=== PATIENT | male | born 1960 | race Caucasian/White ===

== ENCOUNTER → 2017-03-29 | Outpatient (CLI) | payer BC, OTHER ==
[~2017-03-29] MED LIST: AZAT50TA PO; BISO1TAB8 PO; CALC-250 PO; ETAN50PE SQ; FISH1CAP15 PO; HYDR-1231 PO; NAPR1TAB21 PO; ONDA-42 SL; OXYC-309 PO
--- NOTE | 2017-03-29 14:40 | Diagnostic Imaging Report ---
PROCEDURE: CT urinary tract, rule out kidney stone. TECHNIQUE: Multiple contiguous axial images were obtained through the abdomen and pelvis without the use of intravenous contrast. INDICATION: Hematuria with previous flank pain. COMPARISON: 12/18/2014. DISCUSSION: 3 mm nonobstructing right renal calculus is stable. Previously demonstrated 4 mm left renal calculus is no longer visualized. No hydronephrosis, renal stone, or mass identified on this noncontrast exam. The ureters are decompressed. Urinary bladder is mostly decompressed though otherwise unremarkable. The lung bases are well-aerated. Normal heart size. No pleural or pericardial fluid. Mild fatty infiltration of the liver is decreased from previous exam. The gallbladder is contracted. The stomach, pancreas, spleen, and adrenal glands are unremarkable. The large and small bowel loops, including the appendix, appear normal. There is no ascites or pathologically enlarged lymph nodes identified. Mild atherosclerotic plaques noted throughout the abdominal aorta. No acute osseous abnormality identified. 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 IMPRESSION: 1. 3 mm nonobstructing right renal calculus. Dictated by: Dictated on workstation # [id number]
== END ==
LOC: RAD 13:43
PROVIDERS: ATTEND Internal Medicine
DX: N20.2 Calculus of kidney with calculus of ureter (principal)
CPT/HCPCS: 74176

== ENCOUNTER → 2019-05-18 | Outpatient (CLI) | payer BC ==
[2019-05-18 16:14] LABS: ABSOLUTE RETIC # 53 10e9/L (24-90); BASOPHILS % (AUTO) 1 % (0-10); EOSINOPHILS # (AUTO) 0.3 10^3/uL (0.0-0.3); EOSINOPHILS % (AUTO) 4 % (0-10); HEMATOCRIT 40 % (40-54); HEMOGLOBIN 13.6 G/DL (13.3-17.7); LYMPHOCYTES # (AUTO) 1.2 X 10^3 (1.0-4.0); LYMPHOCYTES % (AUTO) 19 % (12-44); MEAN CORPUSCULAR HEMOGLOBIN 33 PG (25-34); MEAN CORPUSCULAR HGB CONC 34 G/DL (32-36); MEAN CORPUSCULAR VOLUME 97 FL (80-99); MEAN PLATELET VOLUME 9.9 FL (7.4-10.4); MONOCYTES # (AUTO) 0.7 X 10^3 (0.0-1.0); MONOCYTES % (AUTO) 10 % (0-12); NEUTROPHILS # (AUTO) 4.2 X 10^3 (1.8-7.8); NEUTROPHILS % (AUTO) 66 % (42-75); PLATELET COUNT 134 10^3/uL (130-400); RED CELL DISTRIBUTION WIDTH 12.3 % (10.0-14.5); RETICULOCYTE % 1.27 % (0.50-2.40); WHITE BLOOD COUNT 6.4 10^3/uL (4.3-11.0)
[2019-05-18 17:49] LABS: LYMPHOCYTES % (MANUAL) 17 %; NEUTROPHILS % (MANUAL) 73 %
[2019-05-18 17:50] LABS: BASOPHILS % (MANUAL) 0 %; EOSINOPHILS % (MANUAL) 4 %; MONOCYTES % (MANUAL) 6 %; RBC MORPH NORMAL
== END ==
LOC: LAB 15:42
PROVIDERS: ATTEND Internal Medicine
DX: D61.818 Other pancytopenia (principal)
CPT/HCPCS: 36415; 85007; 85027; 85045

== ENCOUNTER → 2019-05-21 | Outpatient (CLI) | payer BC ==
--- NOTE | 2019-05-21 12:24 | Diagnostic Imaging Report ---
PROCEDURE: US Thyroid. TECHNIQUE: Multiple real-time grayscale images were obtained of the thyroid in various projections. INDICATION: Enlarged right thyroid. FINDINGS: Right lobe of the thyroid measures 4.7 x 2.9 x 3.0 cm and the left lobe measures 4.6 x 1.7 x 1.6 cm. Isthmus is 4 mm in thickness. There is a complex mixed solid and cystic nodule in the right lobe of the thyroid measuring 2.8 x 2.4 x 2.0 cm. There is vascularity along the margins of the nodule as well as within the septae of the nodule. No microcalcifications are seen. The left lobe of thyroid is unremarkable. IMPRESSION: Complex mixed solid and cystic nodule involving the right lobe of the thyroid, indeterminate. Fine-needle aspiration could be performed. Dictated by: Dictated on workstation # [id number]
== END ==
LOC: RAD 10:22
PROVIDERS: ATTEND Internal Medicine
DX: E04.1 Nontoxic single thyroid nodule (principal)
CPT/HCPCS: 76536

== ENCOUNTER → 2020-03-07 | Outpatient (CLI) | payer BC ==
--- NOTE | 2020-03-07 14:26 | Diagnostic Imaging Report ---
INDICATION: Thyroid nodule Thyroid sonography performed in the routine fashion and compared to 05/21/2019. The right thyroid lobe measured 5.4 x 2.6 x 2.8 cm, left thyroid lobe measured 3.9 x 1.4 x 1.5 cm. In the right lobe centrally, there is a mixed echogenic lesion measuring 2.8 x 1.9 x 1.9 cm. This shows irregular solid components in its periphery and fluidlike components centrally. It is not changed in size or appearance compared to the previous study. On the left side, there is a faint ill-defined nodule measuring 3 x 4 mm. IMPRESSION: Complex lesion right thyroid lobe is not changed in size or appearance compared to 05/21/2019. Tiny 3 x 4 mm nodule in the left thyroid lobe is seen which was not appreciated on the prior study. Suggest continued follow-up as clinically warranted. Dictated by: Dictated on workstation # [id number]
== END ==
LOC: RAD 13:30
PROVIDERS: ATTEND Internal Medicine
DX: E04.1 Nontoxic single thyroid nodule (principal); E07.89 Other specified disorders of thyroid
CPT/HCPCS: 76536

== ENCOUNTER → 2020-03-21 | Outpatient (CLI) | payer BC ==
[~2020-03-21] VITALS: Ht 182.9 cm; Wt 90.0 kg
[~2020-03-21] MED LIST changes: +LIDOCAINE 1% INJ 20 ML 20 ML VIAL INJ ONE
--- NOTE | 2020-03-21 12:48 | Diagnostic Imaging Report ---
INDICATION: Thyroid mass. Patient presents for ultrasound-guided fine-needle aspiration and biopsy. Patient was brought to the procedure room placed on table in the supine position. Ultrasound imaging of the right neck was performed to evaluate appropriate entry site. The right neck was then prepped and draped in usual sterile fashion. Small amount of 1% lidocaine were utilized for local anesthesia. A total of 4 passes were made into the mixed solid and cystic mass involving the right lobe of thyroid utilizing 25-gauge needles. Fine needle laceration technique was performed. A single pass was made into the inferior aspect of the complex lesion utilizing a Rotex needle and a Rotex biopsy was performed. Hemostasis was obtained using manual compression. Patient tolerated procedure well and left the department in stable condition. IMPRESSION: Successful ultrasound-guided fine-needle aspiration and Rotex biopsy of complex right lobe thyroid mass. Pathology results are currently pending. Dictated by: Dictated on workstation # [id number]
== END ==
LOC: RAD 11:12
PROVIDERS: ATTEND Internal Medicine
DX: E07.9 Disorder of thyroid, unspecified (principal)

== ENCOUNTER → 2020-03-29 | Day surgery (SDC) | payer BC ==
[2020-03-29] VITALS (7 sets, daily range): BP systolic 114–157; BP diastolic 73–94
[~2020-03-29] VITALS: Ht 182 cm; Wt 90.0 kg
[~2020-03-29] MED LIST changes: +DEXAMETHASONE 10 MG/ML (DECADRON) 1 ML VIAL ONE; +LACTATED RINGERS 1,000 ML IV PRN; -LIDOCAINE 1% INJ 20 ML 20 ML VIAL INJ ONE; +LIDOCAINE PF 2% 5 ML (XYLOCAINE) VIAL ONE; +MIDAZOLAM 2 MG/2 ML (VERSED) VIAL ONE; +ONDANSETRON 4 MG/2 ML (SDV) Z0FRAN IVP PRN; +ONDANSETRON 4 MG/2 ML (SDV) Z0FRAN ONE; +SEVOFLURANE (ULTANE) 15 ML INHAL SOLN ONE; +cefTRIAXone 1,000 MG/SWFI 10 ML IV PUSH IV ONE; +fentaNYL INJECTION 100 MCG/2 ML AMP ONE; +morphine INJ 10 MG/ML 1ML (SYR OR VIAL) IVP ONE; +proPOfol 200 MG/20 ML (DIPRIVAN) VIAL IV ONE
--- NOTE | 2020-03-29 07:09 | Progress Note-Pre Operative ---
Pre-Operative Progress Note H&P Reviewed The H&P was reviewed, patient examined and no changes noted. Date Seen by Provider: Mar 29, 2020 Time Seen by Provider: 07:08 Date H&P Reviewed: Mar 29, 2020 Time H&P Reviewed: 07:08 Pre-Operative Diagnosis: BPH AND ELEVATED PSA RUT RUDD MD Mar 29, 2020 07:09
--- NOTE | 2020-03-29 07:10 | Progress Note-Post Operative ---
Post-Operative Progess Note Surgeon (s)/Antique Clock Repairer (s) Surgeon RUT RUDD MD Antique Clock Repairer: NONE Pre-Operative Diagnosis BPH AND ELEVATED PSA Post-Operative Diagnosis SAME Procedure & Operative Findings Date of Procedure 03/29/20 Procedure Performed/Findings PROSTATE BIOPSIES Anesthesia Type GENERAL Estimated Blood Loss Estimated blood loss (mL): NEGLIGIBLE Specimens/Packing Specimens Removed PROSTATE BIOPSIES 6RT AND 6LF Packing: NONE RUT RUDD MD Mar 29, 2020 07:10
--- NOTE | 2020-03-29 07:12 | Discharge Inst-Urology ---
Discharge Inst-Urology Reconcile Patient Problems Problems Reviewed?: Yes Final Diagnosis BPH AND ELEVATED PSA Patient Instructions/Follow Up Plan/Assessment/Instructions Please make appointment to been seen in office in 2 weeks. Rest for 48 hours Take the Levaquin pill left at home tomorrow morning Increase oral fluids for 48 hours and then as needed. Diet as tolerated. If questions or concerns contact your physician Or seek help at emergency department. RUT RUDD MD Mar 29, 2020 07:12
--- NOTE | 2020-03-29 10:00 | NUR ---
PATIENT CAME BACK FROM PACU WITH A ARELLANO IN PLACE. DR. RUDD SAID TO REMOVE THE CATHETER. ADAN ANN.
--- NOTE | 2020-03-29 10:34 | OPERATIVE REPORT ---
DATE OF SERVICE: 03/29/2020 PREOPERATIVE DIAGNOSIS: BPH with elevated PSA. POSTOPERATIVE DIAGNOSIS: BPH with elevated PSA. OPERATION PERFORMED: Transrectal needle biopsy of the prostate. SURGEON: Guillaume Rudd MD ANESTHESIA: General. COMPLICATIONS: None. DESCRIPTION OF PROCEDURE: Under satisfactory general anesthesia, the patient in lithotomy position, genitalia and perineum were prepped and draped in the usual sterile fashion. I went ahead using the Bard biopsy gun, I obtained 12 biopsies, six from each side, trying to be at different levels and orientation. There was minimal bleeding. The patient tolerated the procedure and anesthesia well and was sent to the recovery room in a stable condition. Job ID: [id number] DocumentID: [id number] Dictated Date: 03/29/2020 09:19:50 Admission Nurse Coordinator Date: 03/29/2020 10:33:37 Dictated By: GUILLAUME RUDD MD
--- NOTE | 2020-03-29 10:36 | Anesthesia-General Post-Op ---
General Patient Condition Mental Status/LOC: Same as Preop Cardiovascular: Satisfactory Nausea/Vomiting: Absent Respiratory: Satisfactory Pain: Controlled Complications: Absent Post Op Complications Complications None Follow Up Care/Instructions Patient Instructions None needed. Anesthesia/Patient Condition Patient Condition Patient is doing well, no complaints, stable vital signs, no apparent adverse anesthesia problems. ITALO LOWE DO Mar 29, 2020 10:36
== END ==
LOC: SDC 06:22
PROVIDERS: ATTEND Urology
DX: N40.0 Benign prostatic hyperplasia without lower urinary tract symptoms (principal); R97.20 Elevated prostate specific antigen [PSA]; I10 Essential (primary) hypertension; E78.5 Hyperlipidemia, unspecified; M06.9 Rheumatoid arthritis, unspecified; Z79.899 Other long term (current) drug therapy; Z11.2 Encounter for screening for other bacterial diseases; Z20.828 Contact with and (suspected) exposure to other viral communicable diseases; Z87.442 Personal history of urinary calculi; Z98.1 Arthrodesis status
CPT/HCPCS: 55700; 87081; U0002; 87635

== ENCOUNTER → 2020-11-25 | Outpatient (CLI) | payer BC ==
[~2020-11-25] MED LIST changes: -DEXAMETHASONE 10 MG/ML (DECADRON) 1 ML VIAL ONE; -LACTATED RINGERS 1,000 ML IV PRN; -LIDOCAINE PF 2% 5 ML (XYLOCAINE) VIAL ONE; -MIDAZOLAM 2 MG/2 ML (VERSED) VIAL ONE; -ONDANSETRON 4 MG/2 ML (SDV) Z0FRAN IVP PRN; -ONDANSETRON 4 MG/2 ML (SDV) Z0FRAN ONE; -SEVOFLURANE (ULTANE) 15 ML INHAL SOLN ONE; -cefTRIAXone 1,000 MG/SWFI 10 ML IV PUSH IV ONE; -fentaNYL INJECTION 100 MCG/2 ML AMP ONE; -morphine INJ 10 MG/ML 1ML (SYR OR VIAL) IVP ONE; -proPOfol 200 MG/20 ML (DIPRIVAN) VIAL IV ONE
--- NOTE | 2020-11-25 12:06 | Diagnostic Imaging Report ---
CLINICAL HISTORY: Right hip pain. No known injury. COMPARISON: None. TECHNIQUE: Single AP view of the pelvis is obtained. FINDINGS: There is no acute fracture or dislocation of the pelvis and bilateral hips. Moderate to severe degenerative changes are seen in the right hip with joint space loss, marginal osteophytes, and subchondral sclerosis. Milder degenerative changes are seen in the left hip. The bilateral SI joints are well aligned. The pubic symphysis is intact. IMPRESSION: 1. Advanced osteoarthritis in the right hip. 2. No acute fracture or dislocation is seen in the pelvis and bilateral hips. Dictated by: Dictated on workstation # [id number]
--- NOTE | 2020-11-25 12:10 | Diagnostic Imaging Report ---
EXAMINATION: Lumbosacral spine 2 or 3 views HISTORY: Right hip pain. No known injury. COMPARISON: 06/20/2011. FINDINGS: There is no acute fracture or dislocation of the lumbar spine. There is grade 1 anterolisthesis of L4 on L5. The vertebral body heights are well maintained. Moderate degenerative changes are present in the lumbar spine, particularly at the L4-L5 level. The included soft tissues are unremarkable. IMPRESSION: 1. No acute fracture or dislocation in the lumbar spine. 2. Grade 1 anterolisthesis of L4 on L5. 3. Moderate degenerative changes in the lumbar spine, greatest at L4-L5. If indicated, consider MRI of the lumbar spine to further characterize. Dictated by: Dictated on workstation # [id number]
== END ==
LOC: RAD 11:26
PROVIDERS: ATTEND Chiropractor
DX: M16.11 Unilateral primary osteoarthritis, right hip (principal); M43.16 Spondylolisthesis, lumbar region; M47.816 Spondylosis without myelopathy or radiculopathy, lumbar region
CPT/HCPCS: 72100; 72170

== ENCOUNTER 2021-04-03 13:57 | Emergency (ER) | payer BC ==
[~2021-04-03] VITALS: Ht 182.8 cm; Wt 95.0 kg
--- NOTE | 2021-04-03 14:53 | ED Cough/URI ---
General Chief Complaint: Fever-Adult/Adol Stated Complaint: COUGH, CHILLS, DIARRHEA, SWOLLEN FACE Source: patient Exam Limitations: no limitations History of Present Illness Date Seen by Provider: Apr 03, 2021 Time Seen by Provider: 14:52 Initial Comments To ER with cough chills diarrhea swollen face. + for COVID. On Enbrel for p laque psoriasis. BMI 28. Timing/Duration: week, getting worse Severity/Quality: moderate Modifying Factors: Improves With Coughing Associated Symptoms: cough, shortness of breath Allergies and Home Medications Allergies Coded Allergies: No Known Drug Allergies (Unverified , 12/18/14) Home Medications Azathioprine 50 Mg Tablet, 150 MG PO DAILY, (Reported) Bisoprol/Hydrochlorothiazide 1 Each Tablet, 1 EACH PO DAILY, (Reported) Calcium Carbonate/Vitamin D3 1 Each Tablet, 1 EACH PO DAILY, (Reported) Etanercept 50 Mg/1 Ml Pen.injctr, 50 MG SQ FRIDAYS, (Reported) Fish Oil/Dha/Epa 1 Each Capsule, 2 EACH PO DAILY, (Reported) Patient Home Medication List Home Medication List Reviewed: Yes Review of Systems Review of Systems Constitutional: see HPI EENTM: see HPI Respiratory: see HPI, cough Genitourinary: no symptoms reported Musculoskeletal: no symptoms reported Skin: no symptoms reported Psychiatric/Neurological: No Symptoms Reported, Emotional Problems Hematologic/Lymphatic: No Symptoms Reported Immunological/Allergic: no symptoms reported Past Qvtcmju-Supbmt-Rwcckb Hx Seasonal Allergies Seasonal Allergies: No Past Medical History Surgeries: Yes (KNEE SCOPE, NECK FUSION, FOREIGN BODY REMOVAL FROM ANKLE) Orthopedic Respiratory: No Cardiac: No Neurological: No Reproductive Disorders: No Gastrointestinal: No Musculoskeletal: Yes (NECK, ARTHRITIS) Endocrine: No Cancer: No Psychosocial: No Integumentary: No Blood Disorders: No Family Medical History Patient reports no known family medical history. Physical Exam Vital Signs - First Documented 04/03/21 14:30 Temp 38.6 Pulse 84 Resp 22 B/P (MAP) 141/95 (110) Pulse Ox 96 O2 Delivery Room Air Capillary Refill : Height: 6'0" Weight: 250lbs. oz. 113.231193cu; 27.17 BMI Method:Stated General Appearance: WD/WN, no apparent distress, other (No distress oxygen saturation 98% room air) HEENT: PERRL/EOMI, normal ENT inspection Respiratory: normal breath sounds, no respiratory distress, no accessory muscle use Cardiovascular: regular rate, rhythm, no murmur Gastrointestinal: normal bowel sounds, non tender, soft Neurologic/Psychiatric: alert, normal mood/affect, oriented x 3 Skin: normal color, warm/dry Progress/Results/Core Measures Suspected Sepsis SIRS Temperature: Pulse: Respiratory Rate: Laboratory Tests 04/03/21 14:43: White Blood Count 4.1L Blood Pressure / Mean: Laboratory Tests 04/03/21 14:43: Creatinine 0.93, Platelet Count 84L, Total Bilirubin 1.2H Results/Orders Lab Results Laboratory Tests Test 04/03/21 14:43 Range/Units White Blood Count 4.1 L 4.3-11.0 10^3/uL Red Blood Count 4.02 L 4.30-5.52 10^6/uL Hemoglobin 13.4 13.3-17.7 g/dL Hematocrit 38 L 40-54 % Mean Corpuscular Volume 95 80-99 fL Mean Corpuscular Hemoglobin 33 25-34 pg Mean Corpuscular Hemoglobin Concent 35 32-36 g/dL Red Cell Distribution Width 11.4 10.0-14.5 % Platelet Count 84 L 130-400 10^3/uL Mean Platelet Volume 10.9 9.0-12.2 fL Immature Granulocyte % (Auto) 0 % Neutrophils (%) (Auto) 77 H 42-75 % Lymphocytes (%) (Auto) 12 12-44 % Monocytes (%) (Auto) 11 0-12 % Eosinophils (%) (Auto) 0 0-10 % Basophils (%) (Auto) 0 0-10 % Neutrophils # (Auto) 3.2 1.8-7.8 10^3/uL Lymphocytes # (Auto) 0.5 L 1.0-4.0 10^3/uL Monocytes # (Auto) 0.5 0.0-1.0 10^3/uL Eosinophils # (Auto) 0.0 0.0-0.3 10^3/uL Basophils # (Auto) 0.0 0.0-0.1 10^3/uL Immature Granulocyte # (Auto) 0.0 0.0-0.1 10^3/uL Percent Immature Platelet Fraction 6.5 0.0-7.6 % D-Dimer 1.54 H 0.00-0.49 UG/ML Sodium Level 138 135-145 MMOL/L Potassium Level 3.1 L 3.6-5.0 MMOL/L Chloride Level 98 98-107 MMOL/L Carbon Dioxide Level 26 21-32 MMOL/L Anion Gap 14 5-14 MMOL/L Blood Urea Nitrogen 12 7-18 MG/DL Creatinine 0.93 0.60-1.30 MG/DL Estimat Glomerular Filtration Rate 83 BUN/Creatinine Ratio 13 Glucose Level 118 H 70-105 MG/DL Calcium Level 8.8 8.5-10.1 MG/DL Corrected Calcium 8.7 8.5-10.1 MG/DL Total Bilirubin 1.2 H 0.1-1.0 MG/DL Aspartate Amino Transf (AST/SGOT) 50 H 5-34 U/L Alanine Aminotransferase (ALT/SGPT) 44 0-55 U/L Alkaline Phosphatase 64 40-136 U/L C-Reactive Protein High Sensitivity 6.16 H 0.00-0.50 MG/DL Total Protein 7.4 6.4-8.2 GM/DL Albumin 4.1 3.2-4.5 GM/DL SARS-CoV-2 RNA (RT-PCR) Detected H Not Detecte My Orders Orders - RENÉE RICKS APRN Cbc With Automated Diff (04/03/21 14:11) Comprehensive Metabolic Panel (04/03/21 14:11) Hs C Reactive Protein (04/03/21 14:11) Fibrin Degradation Products (04/03/21 14:11) Chest 1 View, Ap/Pa Only (04/03/21 14:11) Covid 19 Inhouse Test (04/03/21 14:11) Ed Iv/Invasive Line Start (04/03/21 14:11) Ct Angio Chest W (04/03/21 15:49) Potassium Chloride (Tablet) (K Dur Table (04/03/21 16:00) Iohexol Injection (Omnipaque 350 Mg/Ml 1 (04/03/21 16:15) Received Contrast (Hold Metformin- Contr (04/03/21 16:15) Ns (Ivpb) (Sodium Chloride 0.9% Ivpb Bag (04/03/21 16:15) Medications Given in ED Current Medications Medications Dose Ordered Sig/Elizabet Route Start Time Stop Time Status Last Admin Dose Admin Potassium Chloride 40 meq ONCE ONCE PO 04/03/21 16:00 04/03/21 16:01 DC 04/03/21 16:30 40 MEQ Vital Signs/I&O 04/03/21 14:30 Temp 38.6 Pulse 84 Resp 22 B/P (MAP) 141/95 (110) Pulse Ox 96 O2 Delivery Room Air Capillary Refill : Departure Communication (Admissions) 1640-patient is reluctant to proceed with CT scan of the chest given claustro phobia issues. Discussed with him that the elevated D-dimer is the reasoning for my desire to proceed with this chest CT angiogram study. This would be to evaluate for pulmonary embolism. Discussed with him that the basis of this is on the elevated D-dimer with his shortness of breath complaint. However, his psoriatic arthritis and Covid could each contribute to this elevated D-dimer though I cannot say with certainty its not from a blood clot in his lungs. He will sign a refusal of services form, we will proceed with setting him up for Regeneron infusion. Impression Primary Impression: COVID-19 Disposition: HOME, SELF-CARE Condition: Stable Departure-Patient Inst. Decision time for Depature: 15:45 Referrals: HOUSTON MALONE MD (PCP/Family) Primary Care Physician Patient Instructions: REGEN-COV (casirivimab and imdevimab) FDA Fact Sheet, COVID-19 ED Add. Discharge Instructions: 1. Scheduling department will call you either today or tomorrow morning with a time to show up for your Regeneron infusion. Attached to the packet of information at the back is information on Regeneron. Tylenol and ibuprofen as needed for fevers or chills. All discharge instructions reviewed with patient and/or family. Voiced understanding. RENÉE RICKS APRN Apr 03, 2021 14:53
[2021-04-03 15:01] LABS: EOSINOPHILS % (AUTO) 0 % (0-10); MEAN CORPUSCULAR VOLUME 95 fL (80-99)
[2021-04-03 15:03] LABS: BASOPHILS % (AUTO) 0 % (0-10); HEMATOCRIT 38 % (40-54); HEMOGLOBIN 13.4 g/dL (13.3-17.7); LYMPHOCYTES # (AUTO) 0.5 10^3/uL (1.0-4.0); LYMPHOCYTES % (AUTO) 12 % (12-44); MEAN CORPUSCULAR HEMOGLOBIN 33 pg (25-34); MEAN CORPUSCULAR HGB CONC 35 g/dL (32-36); MEAN PLATELET VOLUME 10.9 fL (9.0-12.2); MONOCYTES # (AUTO) 0.5 10^3/uL (0.0-1.0); MONOCYTES % (AUTO) 11 % (0-12); NEUTROPHILS # (AUTO) 3.2 10^3/uL (1.8-7.8); NEUTROPHILS % (AUTO) 77 % (42-75); PLATELET COUNT 84 10^3/uL (130-400); WHITE BLOOD COUNT 4.1 10^3/uL (4.3-11.0)
[2021-04-03 15:10] LABS: ALBUMIN 4.1 GM/DL (3.2-4.5); POTASSIUM 3.1 MMOL/L (3.6-5.0)
[2021-04-03 15:11] LABS: CALCIUM 8.8 MG/DL (8.5-10.1)
[2021-04-03 15:12] LABS: TOTAL PROTEIN 7.4 GM/DL (6.4-8.2)
[2021-04-03 15:14] LABS: BILIRUBIN,TOTAL 1.2 MG/DL (0.1-1.0)
[2021-04-03 15:16] LABS: CREATININE SERUM 0.93 MG/DL (0.60-1.30)
--- NOTE | 2021-04-03 15:42 | Diagnostic Imaging Report ---
INDICATION: Covid exposure with cough and diarrhea. Body pain. FINDINGS: There is no focal pulmonary consolidation. The heart size and pulmonary vascularity appeared within normal limits. There is no effusion, pneumothorax or failure pattern. IMPRESSION: No acute abnormality radiographically apparent. Dictated by: Dictated on workstation # [id number]
[2021-04-03] MEDS ORDERED: KCL 20 MEQ TAB (K-DUR) PO ONE (16:00)
[2021-04-03] MEDS ORDERED: HOLD METFORMIN - RECEIVED CONTRAST 20 ML VIAL IV SCH (16:15)
[2021-04-03] MEDS ORDERED: IOHEXOL 350 MG/ML 100 ML (OMNIPAQUE 350) VIAL IV ONE (16:15)
[2021-04-03] MEDS ORDERED: NS 100 ML (IVPB) BAG IV ONE (16:15)
[2021-04-03 16:57] VITALS: BP 130/77
== END 2021-04-03 16:50 | disposition home or self-care (01) ==
LOC: EDUNIT# 13:57 → ER 14:01
DX: U07.1 COVID-19 (principal); R79.89 Other specified abnormal findings of blood chemistry; M47.812 Spondylosis without myelopathy or radiculopathy, cervical region; L40.0 Psoriasis vulgaris; Z79.899 Other long term (current) drug therapy
CPT/HCPCS: 36415; 71045; 80053; 85025; 85379; 86141; 87636

== ENCOUNTER → 2021-04-07 | Outpatient (CLI) | payer BC ==
[~2021-04-07] VITALS: Ht 182 cm; Wt 91.0 kg
[~2021-04-07] MED LIST changes: +CASIRIVIMAB/IMDEVIMAB 1,200 MG in NS (IVPB) 250 ML IV ONE; +EPINEPHrine INJECTION 1 MG/ML AMP IM PRN; +diphenhydrAMINE 50 MG/ML INJ (BENADRYL) IV PRN
[2021-04-07 10:54] VITALS: BP 137/81
[2021-04-07 12:30] VITALS: BP 132/84
== END ==
LOC: INFUSION 10:51
PROVIDERS: ATTEND Nurse Practitioner Family
DX: Z23 Encounter for immunization (principal); U07.1 COVID-19

== ENCOUNTER 2021-09-02 17:53 | Emergency (ER) | payer BC ==
[~2021-09-02] VITALS: Ht 182 cm; Wt 94.0 kg
[~2021-09-02 17:53] MED LIST changes: -CASIRIVIMAB/IMDEVIMAB 1,200 MG in NS (IVPB) 250 ML IV ONE; -EPINEPHrine INJECTION 1 MG/ML AMP IM PRN; -diphenhydrAMINE 50 MG/ML INJ (BENADRYL) IV PRN
[2021-09-02] MEDS ORDERED: LACTATED RINGERS 1,000 ML IV SCH (18:15)
[2021-09-02] MEDS ORDERED: fentaNYL INJ 100 MCG/2 ML AMP IVP ONE (18:15)
[2021-09-02] MEDS ORDERED: IOHEXOL 350 MG/ML 100 ML (OMNIPAQUE 350) VIAL IV ONE (18:15)
[2021-09-02] MEDS ORDERED: HOLD METFORMIN - RECEIVED CONTRAST 20 ML VIAL IV SCH (18:15)
[2021-09-02] MEDS ORDERED: NS 100 ML (IVPB) BAG IV ONE (18:15)
--- NOTE | 2021-09-02 18:17 | ED General ---
General Stated Complaint: ABD PAIN/VOMITING Source of Information: Patient Exam Limitations: No Limitations (RENÉE RICKS APRN) History of Present Illness Date Seen by Provider: Sep 02, 2021 Time Seen by Provider: 18:14 Initial Comments To ER with diffuse abdominal pain. Has had diarrhea since last night, vomiting today with abdomianl pain today. No fever. No history of abdominal surgery. Did just have a prostate biopsy at on Saturday of this past week. His daughter was ill with diarrhea as well within the past 2-3 days. He took some Zofran at home and the nausea is better but the pain is pretty intense. Timing/Duration: 1-2 Days Severity: Moderate Associated Systoms: Nausea/Vomiting (RENÉE RICKS APRN) Allergies and Home Medications Allergies Coded Allergies: No Known Drug Allergies (Unverified , 12/18/14) Patient Home Medication List Home Medication List Reviewed: Yes (RENÉE RICKS APRN) Azathioprine (Azathioprine) 50 Mg Tablet, 150 MG PO DAILY, (Reported) Entered as Reported by: NEREIDA TURCIOS on 07/03/11 1024 Bisoprol/Hydrochlorothiazide (Bisoprolol-Hctz 2.5-6.25 Mg Tb) 1 Each Tablet, 1 EACH PO DAILY, (Reported) Entered as Reported by: NEREIDA TURCIOS on 07/03/11 1024 Calcium Carbonate/Vitamin D3 (Vitamin D3 5,000 Unit Tablet) 1 Each Tablet, 1 EACH PO DAILY, (Reported) Entered as Reported by: NEREIDA TURCIOS on 07/03/11 1024 Etanercept (Enbrel) 50 Mg/1 Ml Pen.injctr, 50 MG SQ FRIDAYS, (Reported) Entered as Reported by: NEREIDA TURCIOS on 07/03/11 1024 Fish Oil/Dha/Epa (Fish Oil 1,200 Mg Fish Oil) 1 Each Capsule, 2 EACH PO DAILY, (Reported) Entered as Reported by: NEREIDA TURCIOS on 07/03/11 1024 Promethazine HCl (Promethazine Tablet) 25 Mg Tablet, 25 MG PO Q8H PRN for NAUSEA/VOMITING Prescribed by: RENÉE RICKS on 09/02/211953 Last Action: New Order Review of Systems Review of Systems Constitutional: see HPI; No chills, No fever EENTM: see HPI Respiratory: no symptoms reported Cardiovascular: no symptoms reported Gastrointestinal: abdominal pain, diarrhea, nausea, vomiting Genitourinary: no symptoms reported Musculoskeletal: no symptoms reported Skin: no symptoms reported Psychiatric/Neurological: No Symptoms Reported Hematologic/Lymphatic: No Symptoms Reported Immunological/Allergic: no symptoms reported (RENÉE RICKS APRN) Past [place]spqve-[place]nebas Hx Seasonal Allergies Seasonal Allergies: No (RENÉE RICKS APRN) Past Medical History Surgeries: Yes (KNEE SCOPE, NECK FUSION, FOREIGN BODY REMOVAL FROM ANKLE) Orthopedic Respiratory: No Cardiac: No Neurological: No Reproductive Disorders: No Gastrointestinal: No Musculoskeletal: Yes (NECK, ARTHRITIS) Endocrine: No Cancer: No Psychosocial: No Integumentary: No Blood Disorders: No (RENÉE RICKS APRN) Family Medical History Patient reports no known family medical history. Physical Exam Vital Signs Vital Signs - First Documented 09/02/21 18:10 Temp 36.7 Pulse 85 Resp 18 B/P (MAP) 193/99 (130) Pulse Ox 100 (YANN KITCHEN MD) Vital Signs Capillary Refill : (RENÉE RICKS APRN) Height, Weight, BMI Height: 6'0" Weight: 250lbs. oz. [id number]; 28.00 BMI Method:Stated General Appearance: WD/WN, Mild Distress Eyes: Bilateral Eye Normal Inspection, Bilateral Eye PERRL, Bilateral Eye EOMI Neck: Full Range of Motion, Normal Inspection Respiratory: No Accessory Muscle Use, No Respiratory Distress Cardiovascular: Regular Rate, Rhythm, Normal Peripheral Pulses Gastrointestinal: Soft, Abnormal Bowel Sounds (hypoactive), Tenderness Extremity: Normal Capillary Refill, Normal Inspection Neurologic/Psychiatric: Alert, Oriented x3 Skin: Normal Color, Warm/Dry (RENÉE RICKS APRN) Progress/Results/Core Measures Suspected Sepsis SIRS Temperature: Pulse: Respiratory Rate: Laboratory Tests 09/02/21 18:15: White Blood Count 11.2H Blood Pressure / Mean: Laboratory Tests 09/02/21 18:15: Creatinine 0.77, Platelet Count 144, Total Bilirubin 3.4H (RENÉE RICKS APRN) Results/Orders Lab Results Laboratory Tests Test 09/02/21 18:15 09/02/21 19:35 Range/Units White Blood Count 11.2 H 4.3-11.0 10^3/uL Red Blood Count 4.15 L 4.30-5.52 10^6/uL Hemoglobin 14.1 13.3-17.7 g/dL Hematocrit 40 40-54 % Mean Corpuscular Volume 97 80-99 fL Mean Corpuscular Hemoglobin 34 25-34 pg Mean Corpuscular Hemoglobin Concent 35 32-36 g/dL Red Cell Distribution Width 12.1 10.0-14.5 % Platelet Count 144 130-400 10^3/uL Mean Platelet Volume 9.9 9.0-12.2 fL Immature Granulocyte % (Auto) 0 % Neutrophils (%) (Auto) 96 H 42-75 % Lymphocytes (%) (Auto) 1 L 12-44 % Monocytes (%) (Auto) 2 0-12 % Eosinophils (%) (Auto) 0 0-10 % Basophils (%) (Auto) 0 0-10 % Neutrophils # (Auto) 10.8 H 1.8-7.8 10^3/uL Lymphocytes # (Auto) 0.1 L 1.0-4.0 10^3/uL Monocytes # (Auto) 0.2 0.0-1.0 10^3/uL Eosinophils # (Auto) 0.0 0.0-0.3 10^3/uL Basophils # (Auto) 0.0 0.0-0.1 10^3/uL Immature Granulocyte # (Auto) 0.0 0.0-0.1 10^3/uL Neutrophils % (Manual) 84 % Lymphocytes % (Manual) 1 % Monocytes % (Manual) 5 % Eosinophils % (Manual) 0 % Basophils % (Manual) 0 % Band Neutrophils 10 % Blood Morphology Comment NORMAL Sodium Level 142 135-145 MMOL/L Potassium Level 4.2 3.6-5.0 MMOL/L Chloride Level 106 98-107 MMOL/L Carbon Dioxide Level 16 L 21-32 MMOL/L Anion Gap 20 H 5-14 MMOL/L Blood Urea Nitrogen 23 H 7-18 MG/DL Creatinine 0.77 0.60-1.30 MG/DL Estimat Glomerular Filtration Rate 103 BUN/Creatinine Ratio 30 Glucose Level 188 H 70-105 MG/DL Calcium Level 9.9 8.5-10.1 MG/DL Corrected Calcium 8.5-10.1 MG/DL Total Bilirubin 3.4 H 0.1-1.0 MG/DL Aspartate Amino Transf (AST/SGOT) 50 H 5-34 U/L Alanine Aminotransferase (ALT/SGPT) 62 H 0-55 U/L Alkaline Phosphatase 64 40-136 U/L C-Reactive Protein High Sensitivity 1.99 H 0.00-0.50 MG/DL Total Protein 8.2 6.4-8.2 GM/DL Albumin 4.6 H 3.2-4.5 GM/DL Lipase 26 8-78 U/L Urine Color YELLOW Urine Clarity CLEAR Urine pH 6.0 5-9 Urine Specific [place] <=1.005 1.016-1.022 Urine Protein NEGATIVE NEGATIVE Urine Glucose (UA) TRACE H NEGATIVE Urine Ketones 3+ H NEGATIVE Urine Nitrite NEGATIVE NEGATIVE Urine Bilirubin NEGATIVE NEGATIVE Urine Urobilinogen 0.2 < = 1.0 MG/DL Urine Leukocyte Esterase NEGATIVE NEGATIVE Urine RBC (Auto) 1+ H NEGATIVE Urine RBC 0-2 /HPF Urine WBC NONE /HPF Urine Squamous Epithelial Cells RARE /HPF Urine Crystals NONE /LPF Urine Bacteria NEGATIVE /HPF Urine Casts NONE /LPF Urine Mucus NEGATIVE /LPF Urine Culture Indicated NO (YANN KITCHEN MD) My Orders Orders - YANN KITCHEN MD Cbc With Automated Diff (09/02/21 18:08) Comprehensive Metabolic Panel (09/02/21 18:08) Hs C Reactive Protein (09/02/21 18:08) Lipase (09/02/21 18:08) Ua Culture If Indicated (09/02/21 18:08) Ed Iv/Invasive Line Start (09/02/21 18:08) Manual Differential (09/02/21 18:15) (YANN KITCHEN MD) Medications Given in ED Current Medications Medications Dose Ordered Sig/Elizabet Route Start Time Stop Time Status Last Admin Dose Admin Fentanyl Citrate 50 mcg ONCE ONCE IVP 09/02/21 18:15 09/02/21 18:16 DC 09/02/21 18:25 50 MCG Iohexol 100 ml ONCE ONCE IV 09/02/21 18:15 09/02/21 18:16 DC 09/02/21 18:51 100 ML Ondansetron HCl 4 mg ONCE ONCE IVP 09/02/21 18:30 09/02/21 18:31 DC 09/02/21 18:25 4 MG Promethazine HCl 12.5 mg ONCE ONCE IVP 09/02/21 18:45 09/02/21 18:46 DC 09/02/21 18:40 12.5 MG Promethazine HCl 25 mg ONCE ONCE PO 09/02/21 20:00 09/02/21 20:01 DC 09/02/21 20:00 25 MG Sodium Chloride 100 ml ONCE ONCE IV 09/02/21 18:15 09/02/21 18:16 DC 09/02/21 18:52 80 ML (YANN KITCHEN MD) Vital Signs/I&O 09/02/21 09/02/21 18:10 20:00 Temp 36.7 36.7 Pulse 85 80 Resp 18 18 B/P (MAP) 193/99 (130) 150/80 Pulse Ox 100 100 09/03/21 00:00 Intake Total 1000 ml Balance 1000 ml (YANN KITCHEN MD) Vital Signs/I&O Capillary Refill : (RENÉE RICKS APRN) Departure Communication (Admissions) Family Conversation 1946-feeling much better after 12.5 mg of Phenergan 1 L of LR and 4 mg of IV Zofran. His abdominal pain is gone. His labs are unremarkable. Liver enzymes are little high. He does report some regular alcohol use. I discussed with him the need to follow-up with primary care to repeat liver enzymes and the need to follow-up to reevaluate the right renal lesion with ultrasound. I will send him home with sublingual Zofran, promethazine, clear liquids for 24 hours. Temperature at this time 100.1 orally. Oxygen 97% on room air. NAME: DIEGO DUGAN [employer] REC#: [id number] PT STATUS: REG ER : 1960 PHYSICIAN: RENÉE RICKS APRN ADMIT DATE: 09/02/21/ER Draft Date of Exam:09/02/21 CT ABDOMEN/PELVIS W PROCEDURE: CT abdomen and pelvis with contrast. TECHNIQUE: Multiple contiguous axial images were obtained through the abdomen and pelvis after administration of intravenous contrast. Auto Exposure Controls were utilized during the CT exam to meet ALARA standards for radiation dose reduction. All CT scans use one or more of the following dose optimizing techniques: automated exposure control, MA and/or KvP adjustment based on patient size and exam type or iterative reconstruction. DATE: September 02, 2021. COMPARISON: CT abdomen and pelvis March 29, 2017. INDICATION: 60-year-old male, abdominal pain, nausea, vomiting, diarrhea. FINDINGS: The visualized portions of the lung bases are clear. The heart is not enlarged. There is no pericardial effusion. There is diffuse fatty infiltration of the liver. The outer liver contours are not nodular. There is no identified liver lesion. The main, right and left portal veins are patent. The gallbladder is unremarkable. There is no intrahepatic or extrahepatic bile duct dilation. The main pancreatic duct is not abnormally dilated. Unremarkable appearance of the pancreatic parenchyma. The spleen is normal in size. The adrenal glands are unremarkable. There is an exophytic right renal lesion on axial image 34 which measures 1.3 cm in size. Internal attenuation measures 18 Hounsfield units. This is technically indeterminate. There is a 2 mm nonobstructing right renal stone on axial image 41. The urinary collecting systems are not distended. There is no identified ureteral stone. The urinary bladder is unremarkable. The intestinal tract is not distended. There is no free intraperitoneal air. There is no drainable fluid collection. There is no free pelvic fluid. There are atherosclerotic calcifications. There is no identified abnormally enlarged left node in the abdomen or pelvis meeting CT size criteria for adenopathy. There is a right total hip prosthesis. There are multilevel degenerative changes of the spine. There is grade 1 anterolisthesis of L4 on L5. IMPRESSION: CT abdomen and pelvis: 1. No identified acute abnormality in the abdomen or pelvis. 2. Diffuse fatty infiltration of the liver. Dictated on workstation # [id number] Dict: 09/02/211904 Trans: 09/02/211921 [facility] [id number] Interpreted by: WEN REYES MD Electronically signed by: (RENÉE RICKS APRN) Impression Primary Impression: Nausea and vomiting Additional Impressions: Diarrhea Lesion of right robinson kidney Elevated LFTs Disposition: 01 HOME, SELF-CARE Condition: Stable Departure-Patient Inst. Decision time for Depature: 19:34 (RENÉE RICKS APRN) Referrals: HOUSTON MALONE MD (PCP/Family) Primary Care Physician Patient Instructions: No Instuctions Given Add. Discharge Instructions: 1. Return to ER for any concerns such as worsening pain, bloody diarrhea, high fever over 101.5. Clear liquids for the next 24 hours. Follow-up with your doctor next week to discuss scheduling ultrasound evaluation of the right kidney lesion which is small that still warrants follow-up. Liver enzymes are little high, try to reduce alcohol intake, liver function tests should be reevaluated in 1 to 2 weeks by primary care. Scripts Promethazine HCl (Promethazine Tablet) 25 Mg Tablet 25 MG PO Q8H PRN for NAUSEA/VOMITING, #10 TAB 0 Refills Prov: RENÉE RICKS APRN 09/02/21 ATTENDING PHYSICIAN NOTE: I was physically present as attending physician in the emergency department during the care of this patient, but I was not directly involved in the decision making or delivery of care for this patient. (YANN KITCHEN MD) Copy Copies To 1: HOUSTON MALONE MD, PETER J APRN Sep 02, 2021 18:17 YANN KITCHEN MD Sep 03, 2021 02:55
[2021-09-02 18:23] LABS: BASOPHILS % (AUTO) 0 % (0-10); EOSINOPHILS % (AUTO) 0 % (0-10); HEMATOCRIT 40 % (40-54); HEMOGLOBIN 14.1 g/dL (13.3-17.7); LYMPHOCYTES # (AUTO) 0.1 10^3/uL (1.0-4.0); LYMPHOCYTES % (AUTO) 1 % (12-44); MEAN CORPUSCULAR HEMOGLOBIN 34 pg (25-34); MEAN CORPUSCULAR HGB CONC 35 g/dL (32-36); MEAN CORPUSCULAR VOLUME 97 fL (80-99); MEAN PLATELET VOLUME 9.9 fL (9.0-12.2); MONOCYTES # (AUTO) 0.2 10^3/uL (0.0-1.0); MONOCYTES % (AUTO) 2 % (0-12); NEUTROPHILS # (AUTO) 10.8 10^3/uL (1.8-7.8); NEUTROPHILS % (AUTO) 96 % (42-75); PLATELET COUNT 144 10^3/uL (130-400); WHITE BLOOD COUNT 11.2 10^3/uL (4.3-11.0)
[2021-09-02] MEDS ORDERED: ONDANSETRON 4 MG/2 ML (SDV) Z0FRAN IVP ONE ×2 (18:30)
[2021-09-02 18:33] LABS: ALBUMIN 4.6 GM/DL (3.2-4.5); CHLORIDE 106 MMOL/L (98-107); POTASSIUM 4.2 MMOL/L (3.6-5.0); SODIUM 142 MMOL/L (135-145)
[2021-09-02 18:34] LABS: CALCIUM 9.9 MG/DL (8.5-10.1)
[2021-09-02 18:35] LABS: GLUCOSE 188 MG/DL (70-105)
[2021-09-02 18:36] LABS: TOTAL PROTEIN 8.2 GM/DL (6.4-8.2)
[2021-09-02 18:37] LABS: BILIRUBIN,TOTAL 3.4 MG/DL (0.1-1.0); CARBON DIOXIDE 16 MMOL/L (21-32)
[2021-09-02 18:39] LABS: ALKALINE PHOSPHATASE 64 U/L (40-136); CREATININE SERUM 0.77 MG/DL (0.60-1.30); GFR ESTIMATED 103
[2021-09-02 18:40] LABS: BAND NEUTROPHILS 10 %; BASOPHILS % (MANUAL) 0 %; BUN/CREATININE RATIO 30; EOSINOPHILS % (MANUAL) 0 %; LYMPHOCYTES % (MANUAL) 1 %; MONOCYTES % (MANUAL) 5 %; NEUTROPHILS % (MANUAL) 84 %
[2021-09-02 18:41] LABS: RBC MORPH NORMAL
[2021-09-02 18:42] LABS: ALANINE AMINOTRANSFERASE 62 U/L (0-55); LIPASE 26 U/L (8-78)
[2021-09-02] MEDS ORDERED: PROMETHAZINE INJ 25 MG/ML (PHENERGAN) AMP IVP ONE (18:45)
--- NOTE | 2021-09-02 19:23 | Diagnostic Imaging Report ---
PROCEDURE: CT abdomen and pelvis with contrast. TECHNIQUE: Multiple contiguous axial images were obtained through the abdomen and pelvis after administration of intravenous contrast. Auto Exposure Controls were utilized during the CT exam to meet ALARA standards for radiation dose reduction. All CT scans use one or more of the following dose optimizing techniques: automated exposure control, MA and/or KvP adjustment based on patient size and exam type or iterative reconstruction. DATE: September 02, 2021. COMPARISON: CT abdomen and pelvis March 29, 2017. INDICATION: 60-year-old male, abdominal pain, nausea, vomiting, diarrhea. FINDINGS: The visualized portions of the lung bases are clear. The heart is not enlarged. There is no pericardial effusion. There is diffuse fatty infiltration of the liver. The outer liver contours are not nodular. There is no identified liver lesion. The main, right and left portal veins are patent. The gallbladder is unremarkable. There is no intrahepatic or extrahepatic bile duct dilation. The main pancreatic duct is not abnormally dilated. Unremarkable appearance of the pancreatic parenchyma. The spleen is normal in size. The adrenal glands are unremarkable. There is an exophytic right renal lesion on axial image 34 which measures 1.3 cm in size. Internal attenuation measures 18 Hounsfield units. This is technically indeterminate. There is a 2 mm nonobstructing right renal stone on axial image 41. The urinary collecting systems are not distended. There is no identified ureteral stone. The urinary bladder is unremarkable. The intestinal tract is not distended. There is no free intraperitoneal air. There is no drainable fluid collection. There is no free pelvic fluid. There are atherosclerotic calcifications. There is no identified abnormally enlarged left node in the abdomen or pelvis meeting CT size criteria for adenopathy. There is a right total hip prosthesis. There are multilevel degenerative changes of the spine. There is grade 1 anterolisthesis of L4 on L5. IMPRESSION: CT abdomen and pelvis: 1. No identified acute abnormality in the abdomen or pelvis. 2. Diffuse fatty infiltration of the liver. Dictated by: Dictated on workstation # [id number]
[2021-09-02 19:39] LABS: BILIRUBIN,URINE NEGATIVE (NEGATIVE); COLOR,URINE YELLOW; GLUCOSE, URINE (UA) TRACE (NEGATIVE); KETONES,URINE 3+ (NEGATIVE); LEUKOCYTE ESTERASE ,URINE NEGATIVE (NEGATIVE); NITRITE,URINE NEGATIVE (NEGATIVE); PROTEIN,URINE NEGATIVE (NEGATIVE)
[2021-09-02 19:49] LABS: BACTERIA,URINE NEGATIVE /HPF; CLARITY,URINE CLEAR; RBC,URINE 0-2 /HPF
[2021-09-02 19:50] LABS: SQUAMOUS EPITHELIAL CELL,UR RARE /HPF
[2021-09-02] MEDS ORDERED: PROM25TA14 PO (19:54)
[2021-09-02 20:00] VITALS: BP 150/80
[2021-09-02] MEDS ORDERED: PROMETHAZINE 25 MG (PHENERGAN) TAB PO ONE (20:00)
== END 2021-09-02 20:03 | disposition home or self-care (01) ==
LOC: EDUNIT# 17:53 → ER 17:55
DX: R11.2 Nausea with vomiting, unspecified (principal); R19.7 Diarrhea, unspecified; N28.89 Other specified disorders of kidney and ureter; R94.5 Abnormal results of liver function studies
CPT/HCPCS: 36415; 74177; 80053; 81000; 83690; 85007; 85027; 86141

== ENCOUNTER → 2021-09-11 | Outpatient (CLI) | payer BC ==
[~2021-09-11] MED LIST changes: +PROM25TA14 PO
--- NOTE | 2021-09-11 16:09 | Diagnostic Imaging Report ---
INDICATION: Newly diagnosed prostate carcinoma. TECHNIQUE: Patient was administered 25.5 mCi technetium-99m MDP intravenously, and whole body imaging was performed after a three-hour delay. COMPARISON: No prior bone scans are available for comparison. FINDINGS: There is normal uptake of activity by the axial and appendicular skeleton. There is uptake by the kidneys with excretion into the urinary bladder. There is an intense focus of uptake involving the mid thoracic spine. There is some uptake in the lower lumbar spine as well. Uptake in the lower lumbar spine could be degenerative as no correlate on the CT study from 09/02/2021 is seen. The thoracic activity could potentially be metastatic. Thoracic spine radiographs or MRI may be useful for further evaluation. There are degenerative changes in bilateral shoulders, bilateral wrists, and bilateral knees as well as the left ankle. IMPRESSION: Indeterminate focus of uptake in the mid thoracic spine. A metastatic lesion cannot be entirely excluded, as described above. Dictated by: Dictated on workstation # [id number]
== END ==
LOC: CARD 12:00
PROVIDERS: ATTEND Urology
DX: C61 Malignant neoplasm of prostate (principal)
CPT/HCPCS: 78306; A9503

== ENCOUNTER → 2021-09-15 | Outpatient (CLI) | payer BC ==
--- NOTE | 2021-09-15 16:10 | Diagnostic Imaging Report ---
EXAMINATION: CT chest without contrast. TECHNIQUE: Multiple contiguous axial images were obtained through the chest without the use of intravenous contrast. All CT scans use one or more of the following dose optimizing techniques: automated exposure control, MA and/or KvP adjustment based on patient size and exam type or iterative reconstruction. HISTORY: Prostate cancer COMPARISON: None available. FINDINGS: There is no edema or pneumonia. No pleural effusion. No pneumothorax. No suspicious nodules. There is no axillary or supraclavicular lymphadenopathy. There is no mediastinal lymphadenopathy. Heart size is normal. There are mild coronary artery calcifications. No pericardial effusion. Aorta is normal in caliber. Limited views of the upper abdomen show hepatic steatosis. There is endplate centered sclerosis of T5/T6 which may correlate to the scintigraphic abnormality. There is also heterotopic calcification of the interspinous ligament. IMPRESSION: 1. Endplate centered sclerosis at T5-T6 with heterotopic calcification of the interspinous ligament. This may be a degenerative cause for the uptake seen on prior bone scan. MRI could be performed for confirmation. Dictated by: Dictated on workstation # [id number]
== END ==
LOC: RAD 15:35
PROVIDERS: ATTEND Urology
DX: C61 Malignant neoplasm of prostate (principal); M89.9 Disorder of bone, unspecified
CPT/HCPCS: 71250

== ENCOUNTER 2021-11-15 14:57 | Emergency (ER) | payer BC ==
--- NOTE | 2021-11-15 15:25 | ED GI ---
General Chief Complaint: Abdominal/GI Problems Stated Complaint: ABD SWELLING Exam Limitations: No Limitations (KATHERINE THACKER STUDENT) History of Present Illness Date Seen by Provider: Nov 15, 2021 Time Seen by Provider: 15:10 Initial Comments Patient is a 61 year old male who presents to the ED with complaints of right sided abdominal swelling. Reports having a robotic assisted laparoscopic prostate surgery on October 30, 2021. States surgery went well and has not any problems til 3 days ago. Reports 3 days ago developed this right sided abdominal swelling without pain, tenderness, nausea, vomiting, diarrhea, or fevers. States the swelling seems unchanged since he first noticed it. Denies chest pain, SOB, and dysuria. Is passing gas having normal BM's and tolerating po intake well. Denies abdominal pain. Called his surgeon's office and they told him to report to the ED for further evaluation. Lap incisions are well approximated, without drainage, and appear to be healing well. Timing/Duration: 3-4 Days Severity/Quality: Other (non painful) Location: RLQ Radiation: No Radiation Activities at Onset: None Associated Symptoms: Denies Symptoms (KATHERINE THACKER STUDENT) Allergies and Home Medications Allergies Coded Allergies: No Known Drug Allergies (Unverified , 12/18/14) Patient Home Medication List Home Medication List Reviewed: Yes (HARSH TEMPLE MD) Azathioprine (Azathioprine) 50 Mg Tablet, 150 MG PO DAILY, (Reported) Entered as Reported by: NEREIDA TURCIOS on 07/03/11 1024 Bisoprol/Hydrochlorothiazide (Bisoprolol-Hctz 2.5-6.25 Mg Tb) 1 Each Tablet, 1 EACH PO DAILY, (Reported) Entered as Reported by: NEREIDA TURCIOS on 07/03/11 1024 Calcium Carbonate/Vitamin D3 (Vitamin D3 5,000 Unit Tablet) 1 Each Tablet, 1 EACH PO DAILY, (Reported) Entered as Reported by: NEREIDA TURCIOS on 07/03/11 1024 Etanercept (Enbrel) 50 Mg/1 Ml Pen.injctr, 50 MG SQ FRIDAYS, (Reported) Entered as Reported by: NEREIDA TURCIOS on 07/03/11 1024 Fish Oil/Dha/Epa (Fish Oil 1,200 Mg Fish Oil) 1 Each Capsule, 2 EACH PO DAILY, (Reported) Entered as Reported by: NEREDIA TURCIOS on 07/03/11 1024 Promethazine HCl (Promethazine Tablet) 25 Mg Tablet, 25 MG PO Q8H PRN for NAUSEA/VOMITING Prescribed by: RENÉE RICKS on 09/02/211953 Review of Systems Review of Systems Constitutional: no symptoms reported; No chills, No diaphoresis, No fever EENTM: No Symptoms Reported; No Blurred Vision, No Double Vision Respiratory: No Symptoms Reported; Denies Cough, Denies Shortness of Air Cardiovascular: No Symptoms Reported; Denies Chest Pain, Denies Edema, Denies Lightheadedness Gastrointestinal: Denies Constipated, Denies Diarrhea, Denies Nausea, Denies Poor Appetite, Denies Vomiting; Other (Reports right sided abdominal swelling) Genitourinary: No Symptoms Reported; Denies Discharge, Denies Frequency Musculoskeletal: no symptoms reported; No back pain, No joint pain Skin: no symptoms reported; No change in color, No change in hair/nails Psychiatric/Neurological: No Symptoms Reported; Denies Anxiety, Denies Depressed Endocrine: No Symptoms Reported; Denies Excessive Sweating, Denies Flushing Hematologic/Lymphatic: No Symptoms Reported; Denies Easy Bleeding, Denies Easy Bruising (KATHERINE THACKER MED STUDENT) All Other Systems Reviewed Negative Unless Noted: Yes (KATHERINE THACKER [employer] STUDENT) Past Cisvayd-Etzytn-Bwgdgt Hx Patient Social History Tobacco Use?: No Smoking Status: Never a Smoker Smokeless Tobacco Frequency: Never a User Use of E-Cig and/or Vaping dev: No Use of E-Cig and/or Vaping Héctor: Never a User Substance use?: No Alcohol Use?: Yes Alcohol type: Hard Liquor Alcohol Frequency: Once in a while Pt feels they are or have been: No (KATHERINE THACKER MED STUDENT) Immunizations Up To Date Tetanus Booster (TDap): Unknown ([employer]ELI [employer] STUDENT) Seasonal Allergies Seasonal Allergies: No (KATHERINE THACKER [employer] STUDENT) Past Medical History Surgery/Hospitalization HX: PROSTATE CA Surgeries: Yes (KNEE SCOPE, NECK FUSION, FOREIGN BODY REMOVAL FROM ANKLE) Orthopedic, Prostatectomy (Robotic assisted laparoscopic prostate surgery Oct) Respiratory: No Cardiac: No Neurological: No Reproductive Disorders: No Genitourinary: No Gastrointestinal: No Musculoskeletal: Yes (NECK, ARTHRITIS) Endocrine: No HEENT: No Loss of Vision: Denies Hearing Impairment: Denies Cancer: No Psychosocial: No Integumentary: Yes (psoriatic arthritis) Blood Disorders: No (KATHERINE THACKER STUDENT) Family Medical History Patient reports no known family medical history. Physical Exam Vital Signs Vital Signs - First Documented 11/15/21 15:13 Temp 35.8 Pulse 71 Resp 17 B/P (MAP) 164/96 (118) Pulse Ox 98 (HARSH TEMPLE MD) Vital Signs Capillary Refill : (KATHERINE THACKER MED STUDENT) Height/Weight/BMI Height: 6'0" Weight: 250lbs. oz. 113.561363pm; 28.00 BMI Method:Stated General Appearance: WD/WN, no apparent distress HEENT: PERRL/EOMI, pharynx normal Neck: non-tender, full range of motion Respiratory: chest non-tender, lungs clear, normal breath sounds, no respiratory distress Cardiovascular: normal peripheral pulses, regular rate, rhythm, no edema Peripheral Pulses: 2+ Radial Pulses (R), 2+ Radial Pulses (L) Gastrointestinal: normal bowel sounds, non tender, soft; No distended, No guarding, No rebound, No tenderness Rectal: deferred Extremities: normal range of motion, non-tender, normal inspection, no pedal edema, no calf tenderness, normal capillary refill Back: normal inspection, no vertebral tenderness Neurologic/Psychiatric: no motor/sensory deficits, alert, normal mood/affect, oriented x 3 Skin: normal color, warm/dry, other (lap incisions vental abdomen healing, well approximated without drainage.) Lymphatic: no adenopathy (Head and Neck) (KATHERINE THACKER MED STUDENT) Progress/Results/Core Measures Results/Orders Vital Signs/I&O 11/15/21 11/15/21 15:13 16:04 Temp 35.8 35.8 Pulse 71 68 Resp 17 17 B/P (MAP) 164/96 (118) 147/90 Pulse Ox 98 99 (HARSH TEMPLE MD) Progress Progress Note : Time: 15:53 Progress Note 61yo male s/p radical prostatectomy 10/30 (for cancer). doing well. exercising. eating with normal urination and BM. No fever, chills. No n/v/d. no black or bloody stools. No respiratory complaints. concerned for swelling in right anterior/lateral abdominal wall. Non tender. Not having to take pain meds. became aware of the swelling bending to put his pants/shoes on. physical exam remarkable for a little asymmetry in the abdominal wall - right side appears more prominent than the left. I can feel a little abdominal wall edema. It is completely nontender. no overlying erythema. No skin changes. No enlarged liver margin palpable. No fluids wave/concern for ascites. BS are present. All lap sites are healing well - no redness or drainage or tenderness at all. Examined patient both standing and supine. HR reg without mumur; Lungs CTA bilat He denies any associated scrotal pain or swelling. He Is not light headed or dizzy with position change. VSS. Assessment: abdominal wall edema (mild) - post surgical Recc: conservative management. monitor for increased swelling and associated symptoms of fever/chills/redness; return precautions. He verbalizes understanding as does at the bedside. (HARSH TEMPLE MD) Departure Impression Primary Impression: Localized swelling of abdominal wall Disposition: HOME, SELF-CARE Condition: Stable Departure-Patient Inst. Decision time for Depature: 15:57 (HARSH TEMPLE MD) Referrals: HOUSTON MALONE MD (PCP/Family) Primary Care Physician Add. Discharge Instructions: Monitor the swelling for worsening. Return to the Emergency Department for any signs of redness in the abdomen, especially at the surgical sites, fever over 100.4; Nausea or vomiting, light- headedness or dizziness. Stay active. Watch the salt intake in your diet (which can cause you to retain fluid). Continue current medications. Follow up with primary care and your surgeon as scheduled. Verification and Attestation of Medical Student E/M Service A medical student performed and documented this service in my presence. I reviewed and verified all information documented by the medical student and made modifications to such information, when appropriate. I personally performed the physical exam and medical decision making. Harsh Temple, Nov 15, 2021,16:01 (HARSH TEMPLE MD) KATHERINE THACKER MED STUDENT Nov 15, 2021 15:25 HARSH TEMPLE MD Nov 15, 2021 15:58
[2021-11-15 16:04] VITALS: BP 147/90
== END 2021-11-15 16:05 | disposition home or self-care (01) ==
LOC: EDUNIT# 14:57 → ER 14:58
DX: R19.00 Intra-abdominal and pelvic swelling, mass and lump, unspecified site (principal)
CPT/HCPCS: 99281

== ENCOUNTER → 2022-11-02 | Outpatient (CLI) | payer BC ==
--- NOTE | 2022-11-02 15:20 | Diagnostic Imaging Report ---
PROCEDURE: US Renal Bilateral. TECHNIQUE: Multiple real-time grayscale images were obtained over the kidneys in various projections bilaterally. INDICATION: Right renal mass noted on prior CT from 09/02/2021. COMPARISON: Correlation is made with CT exam from 09/02/2021. FINDINGS: Right kidney measures 11.5 x 5.3 x 4.7 cm, and left kidney measures 10.9 x 7.1 x 5.3 cm. Cortical thickness and echogenicity appear normal. No calculi are seen. There is a rounded area of echogenicity along the lateral aspect of the right kidney measuring 2.4 x 2.0 x 1.9 cm. It is uncertain if this represents perirenal fat versus a true exophytic renal lesion. Correlation with CT would be recommended. Left kidney is unremarkable. Bladder is unremarkable. Bilateral ureteral jets are visualized. IMPRESSION: Questionable echogenic mass versus normal surrounding perirenal fat adjacent to the right kidney, as described. CT would be useful for further evaluation. No other significant abnormality is detected. Dictated by: Dictated on workstation # [id number]
== END ==
LOC: RAD 12:17
PROVIDERS: ATTEND Internal Medicine
DX: N28.89 Other specified disorders of kidney and ureter (principal)
CPT/HCPCS: 76770

== ENCOUNTER → 2022-11-08 | Outpatient (CLI) | payer BC ==
[~2022-11-08] MED LIST changes: +HOLD METFORMIN - RECEIVED CONTRAST 20 ML VIAL IV SCH; +IOHEXOL 350 MG/ML 100 ML (OMNIPAQUE 350) VIAL IV ONE; +NS 100 ML (IVPB) BAG IV ONE
--- NOTE | 2022-11-08 16:54 | Diagnostic Imaging Report ---
EXAMINATION: CT abdomen and pelvis with intravenous contrast. TECHNIQUE: Multiple contiguous axial images were obtained through the abdomen and pelvis after the uneventful administration of intravenous contrast. All CT scans use one or more of the following dose optimizing techniques: automated exposure control, MA and/or KvP adjustment based on patient size and exam type or iterative reconstruction. HISTORY: History of prostate cancer. COMPARISON: 09/02/2021. FINDINGS: The heart is unremarkable. The included lung bases are clear. There is hepatic steatosis. No focal hepatic lesions. The portal vein is patent. The gallbladder is nondistended. There is slight increase in size in a somewhat complex cyst off the right kidney which may demonstrate contrast enhancement measuring 1.5 cm. No hydronephrosis. Urinary bladder is nondistended. The prostate is surgically absent. The spleen, pancreas, and adrenal glands have a normal appearance. There is no pathologically enlarged mesenteric or retroperitoneal adenopathy. The bowel loops are nondilated. The appendix is visualized in the right lower quadrant and has a normal appearance. There is no free fluid or free air. No acute osseous abnormalities. Right hip arthroplasty changes are seen. There is calcified aortic and iliac atherosclerotic plaque without aneurysm. There is no free air, loculated collection, or adenopathy in the pelvis. IMPRESSION: 1. Possibly enhancing lesion in the right kidney measuring 1.5 cm, slightly increased in size since the prior exam. Consider dedicated CT of the abdomen and pelvis with renal protocol to further evaluate. 2. Surgically absent prostate. No lymphadenopathy in the abdomen and pelvis. No suspicious sclerotic osseous lesions are identified. 3. Hepatic steatosis. Dictated by: Dictated on workstation # [id number]
== END ==
LOC: RAD 15:45
PROVIDERS: ATTEND Internal Medicine
DX: N28.89 Other specified disorders of kidney and ureter (principal); K76.0 Fatty (change of) liver, not elsewhere classified; Z85.46 Personal history of malignant neoplasm of prostate; Z90.79 Acquired absence of other genital organ(s)
CPT/HCPCS: 74177

== ENCOUNTER → 2022-12-17 | Outpatient (CLI) | payer BC ==
[2022-12-17 14:09] LABS: CREATININE SERUM 0.83 MG/DL (0.60-1.30)
--- NOTE | 2022-12-17 17:20 | Diagnostic Imaging Report ---
PROCEDURE: CT abdomen with and without contrast. TECHNIQUE: Multiple contiguous axial CT images of the abdomen were obtained prior to and after intravenous administration of iodinated contrast. Auto Exposure Controls were utilized during the CT exam to meet ALARA standards for radiation dose reduction. INDICATION: Prostate cancer COMPARISON is made with study from 11/08/2022 FINDINGS: The lung bases are clear. The liver has heterogeneous density consistent with areas of fatty infiltration. The portal vein is patent with hepatopetal flow. The gallbladder is present. There are no stones or wall thickening. Pancreas appears normal. The spleen is not enlarged. Adrenals are normal. There is a 2 mm calculus in the lower pole calyx of the right kidney. There is 1.5 exophytic nodule on the surface of the right kidney. This is unchanged in appearance compared to the previous study. It does appear to enhance with precontrast Hounsfield density of 18 and postcontrast delayed density of 45 Hounsfield units. There is calcific atherosclerosis of the aorta. The visualized portions of the large and small bowel are unremarkable. IMPRESSION: Stable appearance of the nodule on the surface of the right kidney. This nodule enhances which raises concern for renal cell carcinoma. Dictated by: Dictated on workstation # [id number]
== END ==
LOC: RAD 14:15
PROVIDERS: ATTEND Internal Medicine
DX: C61 Malignant neoplasm of prostate (principal); N28.9 Disorder of kidney and ureter, unspecified
CPT/HCPCS: 36415; 74170; 82565; 84520

== ENCOUNTER → 2023-06-12 | Outpatient (CLI) | payer BC ==
[2023-06-12 10:44] LABS: CREATININE SERUM 0.77 MG/DL (0.60-1.30)
--- NOTE | 2023-06-12 11:54 | Diagnostic Imaging Report ---
PROCEDURE: CT abdomen with and without contrast. TECHNIQUE: Multiple contiguous axial CT images of the abdomen were obtained prior to and after intravenous administration of iodinated contrast. Auto Exposure Controls were utilized during the CT exam to meet ALARA standards for radiation dose reduction. INDICATION: Prostate cancer. Correlation is made with prior CT from 12/17/2022. Lung bases are clear. There is generalized low attenuation throughout the liver consistent with hepatic steatosis with some geographic fatty infiltration in the left hepatic lobe. No discrete hepatic mass is identified. There is no biliary duct dilatation. The gallbladder is unremarkable. The pancreas and spleen are unremarkable. No adrenal mass is detected. Right kidney does contain a 3 mm nonobstructing calculus in the lower pole. The enhancing lesion along the surface of the right kidney laterally is stable when measured by the same technique. This measures 17 x 9 mm compared with 18 x 10 mm on prior. Left kidney is unremarkable. Aorta is calcified but nonaneurysmal. No central retroperitoneal or mesenteric lymphadenopathy is seen. Bowel loops are normal caliber. There is no ascites. IMPRESSION: 1. Hepatic steatosis. 2. Stable right renal lesion when compared with exam from 12/17/2022. 3. Nonobstructing right renal calculus. Dictated by: Dictated on workstation # [id number]
== END ==
LOC: RAD 10:15
PROVIDERS: ATTEND Urology
DX: C61 Malignant neoplasm of prostate (principal); K76.0 Fatty (change of) liver, not elsewhere classified; N20.0 Calculus of kidney
CPT/HCPCS: 36415; 74170; 82565; 84520